=== PATIENT | male | born 2000 | race Hispanic/Latino ===

== ENCOUNTER 2022-07-09 13:58 | Emergency (ER) | payer OTHER ==
[~2022-07-09] VITALS: Ht 165.1 cm; Wt 106.6 kg
[2022-07-09] MEDS ORDERED: ONDANSETRON HCL INJ 2MG/ML 2ML 2 MG/ML VIAL IV STA (14:02)
[2022-07-09] MEDS ORDERED: TETANUS/DIPHTHERIA TOX ADULT 0.5 ML SYR IM ONE (14:15)
[2022-07-09] MEDS ORDERED: Morphine 4mg INJECTION 4 MG/ML INJ IV ONE (15:00)
[2022-07-09] MEDS ORDERED: LIDOCAINE HCL 1% LOCAL INJ 20 ML VIAL INJ ONE (16:00)
[2022-07-09] MEDS ORDERED: HYDROCODON-ACE1 EA11 PO (18:25)
[2022-07-09] MEDS ORDERED: CEPHALEXIN500 MG PO (18:25)
[2022-07-10] MEDS ORDERED: HYDROCODON-ACE1 EA11 PO (15:27)
== END 2022-07-09 19:32 | disposition home or self-care (01) ==
LOC: ER 14:04
DX: S60.221A Contusion of right hand, initial encounter (principal); W23.1XXA Caught, crushed, jammed, or pinched between stationary objects, initial encounter; Y99.0 Civilian activity done for income or pay
CPT/HCPCS: 73130; 90471; 90714; 99284; J0690; J2001; J2270; J2405; J7050